=== PATIENT | male | born 1955 | race Caucasian/White ===

== ENCOUNTER 2019-07-03 15:01 | Emergency (ER) | payer OTHER ==
--- NOTE | 2019-07-03 15:30 | CT ---
Cervical spine CT without contrast: 07/03/2019 COMPARISON: None HISTORY: Injury, trauma, pain TECHNIQUE: Axial CT imaging at 2.5 mm intervals through the cervical spine without contrast. Coronal and sagittal reformatted imaging obtained. FINDINGS: The occipital condyles, the dens, the atlantoaxial interspace, and the cervicothoracic junc tion demonstrate no acute findings. There is prominent degenerative change at the atlantoaxial interspace. Cervical vertebral body height and alignment appears within normal limits. No anterolisth esis or retrolisthesis is seen. No acute fracture or evidence of dislocation. Imaged lung apices unremarkable. IMPRESSION: No acute fracture or dislocation. Results called to Dr. Isaacs at approximately 3:30 PM 07/03/2019.
--- NOTE | 2019-07-03 15:31 | CT ---
Head CT without contrast 07/03/2019: Comparison: None HISTORY: Trauma TECHNIQUE: Axial CT imaging at 5 mm intervals from vertex through skull base without contrast FINDINGS: Imaged paranasal sinuses and mastoid air cells well-aerated. No displaced calvarial fractur e. No intracranial hemorrhage, midline shift, mass effect, or ventricular enlargement. IMPRESSION: No acute findings. Results called to Dr. Isaacs at approximately 3:30 PM 07/03/2019
--- NOTE | 2019-07-03 15:35 | RAD ---
TWO VIEWS LEFT FOREARM: 07/03/19 COMPARISON: None. HISTORY: Injury, trauma, pain. FINDINGS: No acute fracture or evidence of dislocation. IMPRESSION: No acute findings. POS: [facility]
--- NOTE | 2019-07-03 15:37 | RAD ---
FRONTAL RADIOGRAPH CHEST: 07/03/19 COMPARISON: None. HISTORY: Injury, trauma, pain. FINDINGS: No pneumothorax, pleural fluid, focal consolidation, or alveolar edema. Heart and mediastinal contour s appear within normal limits. IMPRESSION: No acute findings. POS: [facility]
[2019-07-03] MEDS ORDERED: Adacel (T-DAP) 0.5 ML SYRINGE ONE (16:01)
== END 2019-07-03 16:30 | disposition home or self-care (01) ==
LOC: ERS 15:01
DX: S50.12XA Contusion of left forearm, initial encounter (principal); E78.00 Pure hypercholesterolemia, unspecified; Z79.899 Other long term (current) drug therapy; V43.92XA Unspecified car occupant injured in collision with other type car in traffic accident, initial encounter
CPT/HCPCS: 70450; 71045; 72125; 90471; 90715; G0390